=== PATIENT | male | born 1960 | race Caucasian/White ===

== ENCOUNTER 2017-08-28 13:17 | Day surgery (SDC) | payer BC ==
[~2017-08-28] VITALS: Ht 177.8 cm; Wt 75.2 kg
[2017-08-28 13:51] VITALS: BP 132/81; PULSE 48; TEMP 98.6
[2017-08-28] MEDS ORDERED: MULTI VITAMINS1 TAB (14:04)
[2017-08-28 15:13] VITALS: BP 132/81; PULSE 52
[2017-08-28 15:43] VITALS: BP 124/87; PULSE 50
[2017-08-28 15:45] VITALS: BP 125/90; PULSE 54
== END 2017-08-28 15:58 | disposition home or self-care (01) ==
LOC: SDCO 13:17
DX: Z12.11 Encounter for screening for malignant neoplasm of colon (principal); K57.30 Diverticulosis of large intestine without perforation or abscess without bleeding; K21.9 Gastro-esophageal reflux disease without esophagitis; K44.9 Diaphragmatic hernia without obstruction or gangrene
CPT/HCPCS: OP; J2250; J3010; J7030

== ENCOUNTER → 2021-08-02 | Outpatient (CLI) | payer OTHER ==
[~2021-08-02] MED LIST: MULTI VITAMINS1 TAB
== END ==
LOC: COL.RAD 08:49
DX: D32.0 Benign neoplasm of cerebral meninges (principal)
CPT/HCPCS: A9575

== ENCOUNTER 2022-04-30 10:17 | Day surgery (SDC) | payer OTHER ==
[2022-04-30] VITALS (9 sets, daily range): BP systolic 133–157; BP diastolic 76–97; PULSE 60–80; TEMP 97.3–98.2
[~2022-04-30] VITALS: Ht 177.8 cm; Wt 77.5 kg
[2022-04-30] MEDS ORDERED: MAG-OX 400400 MG/TAB PO (11:32)
[2022-04-30] MEDS ORDERED: NORCO 325 MG-51 TAB PO (14:57)
--- NOTE | 2022-04-30 17:45 | NUR ---
1540 RETURNS TO ROOM 6 PER CART. AWAKE, ALERT. HOB ELEVATED 30 DEGREES. RESP UNLABORED. VITAL SIGNS OBTAINED. ABD SOFT. LAP SITE INCISIONS X 3 WITHOUT REDNESS, DRAINAGE OR EDEMA. UMBILICAL DRESSING CLEAN DRY AND INTACT. RIGHT INGUINAL AREA DRESSING CLEAN DRY AND INTACT. EXPRESSES COMFORT CALL LIGHT AT SIDE. IN ROOM 1555 TOLERATESS PO WATER WITHOUT NAUSEA 1607 AMBULATES TO BATHROOM WITH STANDBY ASSIST. REPORTS VOIDED SMALL AMOUNT 1620 TOLERATES PO JUICE AND MUFFIN WITHOUT NAUSEA. 1645 PATIENT REPORTS MOD ABD PAIN. 4-5. PREFERS NO PAIN MED. 1700 DISCHARGE INSTUCITIONS REVIEWED. PATIENT AND VERBALIZE UNDERSTANDING. COPY PROVIDED IN DISCHARGE FOLDER 1705 AMBULATES TO BATHROOM .PATIENT EXPRESSSES CONCERN REGARDING ONLY VOIDING SMALL AMOUNT, ALTHOUGH DENIES URINARY URGENCY. BLADDER SCAN DONE URINE =160 ML 1712 PO PAIN PILL GIVEN WITH ENCOURAGEMENT 1742 AMBULATES TO BATHROOM. PATIENT EXPRESSES COMFORT. REPORTS ADEQUATE VOIDING. DRESSES SELF
== END 2022-04-30 17:50 | disposition home or self-care (01) ==
LOC: SDCO 10:17
DX: K40.90 Unilateral inguinal hernia, without obstruction or gangrene, not specified as recurrent (principal); K42.9 Umbilical hernia without obstruction or gangrene; N43.3 Hydrocele, unspecified; F17.290 Nicotine dependence, other tobacco product, uncomplicated; K21.9 Gastro-esophageal reflux disease without esophagitis
CPT/HCPCS: C1781; J0690; J1100; J1170; J2405; J2704; J3010; J7120